=== PATIENT | female | born 1935 | race Caucasian/White ===

== ENCOUNTER 2016-12-04 13:36 | Inpatient (IN) | payer MEDICARE ==
[~2016-12-04] VITALS: Ht 134.6 cm; Wt 50.8 kg
[2016-12-04] MEDS ORDERED: PLEASE ENTER ALLERGIES MC SCH ×2 (14:00)
[2016-12-04] MEDS ORDERED: MAALOX/HYOSCYAMINE/LIDOCAINE 45 ML BTL PO ONE (14:00)
[2016-12-04] MEDS ORDERED: PLEASE ENTER HEIGHT AND WEIGHT MC SCH (14:00)
[2016-12-04] MEDS ORDERED: MONT4GRA PO (14:05)
[2016-12-04] MEDS ORDERED: ESCI10TA10 PO (14:06)
[2016-12-04] MEDS ORDERED: CETI10CA PO (14:06)
[2016-12-04] MEDS ORDERED: INSU100C SQ-INSULIN (14:07)
[2016-12-04 14:09] LABS: PH, VENOUS 7.237 pH (7.320-7.420)
[2016-12-04] MEDS ORDERED: MAALOX/HYOSCYAMINE/LIDOCAINE 45 ML BTL ONE (14:12)
[2016-12-04 14:16] LABS: HEMATOCRIT 37.6 % (34.6-47.8); HEMOGLOBIN 12.4 g/dL (11.7-16.4); WHITE BLOOD COUNT 10.5 x10^3/uL (3.4-10)
[2016-12-04 14:22] LABS: BLOOD UREA NITROGEN 29 mg/dL (7-18)
[2016-12-04 14:26] LABS: IS PT STATUS REG ER OR PRE ER? YES
[2016-12-04] MEDS ORDERED: SODIUM CHLORIDE 0.9% 1,000ML IVBOLUS ONE ×2 (14:30→15:00)
[2016-12-04] MEDS ORDERED: SODIUM CHLORIDE FLUSH 10ML SYR IVF ONE (14:30)
[2016-12-04] MEDS ORDERED: NITROGLYCERIN SINGLE TAB 0.4 MG SL ONE (14:51)
[2016-12-04] MEDS ORDERED: INSULIN REGULAR 100 UNITS/ML, 3ML VIAL ONE (14:52)
[2016-12-04] MEDS ORDERED: ASPIRIN 81 MG TABLET CHEW ONE (14:52)
[2016-12-04] MEDS ORDERED: INSULIN REGULAR 100 UNITS/ML, 3ML VIAL SQ-INSULIN ONE (15:00)
[2016-12-04] MEDS ORDERED: NITROGLYCERIN SINGLE TAB 0.4 MG SL PRN (15:00)
[2016-12-04] MEDS ORDERED: ASPIRIN 81 MG TABLET CHEW PO ONE (15:00)
[2016-12-04 16:27] LABS: BLOOD UREA NITROGEN 29 mg/dL (7-18)
[2016-12-04] MEDS ORDERED: DOCUSATE 100 MG CAPSULE PO PRN (16:30)
[2016-12-04] MEDS ORDERED: POLYETHYLENE GLYCOL 17 GM PACKET PO PRN (16:30)
[2016-12-04] MEDS ORDERED: ONDANSETRON 2MG/ML, 2ML IVPush PRN (16:30)
[2016-12-04] MEDS ORDERED: BISACODYL 10 MG SUPP PR PRN (16:30)
[2016-12-04] MEDS ORDERED: ENOXAPARIN 40 MG/0.4 ML ONE (16:44)
[2016-12-04] MEDS: ENOXAPARIN 40 MG/0.4 ML SQ SCH (16:47)
[2016-12-04] MEDS: SODIUM CHLORIDE 0.9% 1,000 ML IV SCH ×2 (16:47→18:48)
[2016-12-04 17:58] VITALS: BP 158/52
[2016-12-04] MEDS: REGULAR INSULIN 62.5 UNITS in SODIUM CHLORIDE 0.9% 249.375 ML IV PRN (18:47)
[2016-12-04 20:05] LABS: BLOOD UREA NITROGEN 25 mg/dL (7-18)
[2016-12-04] MEDS: METOPROLOL TARTRATE 25 MG TABLET PO SCH (20:23)
[2016-12-04 20:25] LABS: IS PT STATUS REG ER OR PRE ER? NO
[2016-12-04] MEDS ORDERED: FAMOTIDINE 20 MG/2 ML IVPush SCH (21:00)
[2016-12-04] MEDS ORDERED: D5%-0.45% NACL 1,000 ML IV SCH (22:00)
[2016-12-04] MEDS: D5%-0.45% NACL 1,000 ML IV SCH (22:00)
[2016-12-05 00:38] LABS: BLOOD UREA NITROGEN 20 mg/dL (7-18)
[2016-12-05 04:50] LABS: IS PT STATUS REG ER OR PRE ER? NO
[2016-12-05 04:57] LABS: ASPARTATE AMINO TRANSFERASE 18 U/L (15-37); BLOOD UREA NITROGEN 19 mg/dL (7-18)
[2016-12-05 05:14] LABS: HEMATOCRIT 31.5 % (34.6-47.8); HEMOGLOBIN 10.4 g/dL (11.7-16.4); WHITE BLOOD COUNT 16.1 x10^3/uL (3.4-10)
[2016-12-05] MEDS: ASPIRIN 81 MG TABLET EC PO SCH (05:32)
[2016-12-05] MEDS: METOPROLOL TARTRATE 25 MG TABLET PO SCH ×2 (05:32→18:28)
[2016-12-05] MEDS: D5%-0.45% NACL 1,000 ML IV SCH ×2 (05:32→13:49)
[2016-12-05 08:09] LABS: BLOOD UREA NITROGEN 16 mg/dL (7-18)
[2016-12-05] MEDS: FAMOTIDINE 20 MG/2 ML IVPush SCH (09:44)
[2016-12-05 12:27] LABS: BLOOD UREA NITROGEN 12 mg/dL (7-18)
[2016-12-05 12:38] LABS: IS PT STATUS REG ER OR PRE ER? NO
[2016-12-05] MEDS: ENOXAPARIN 40 MG/0.4 ML SQ SCH (16:33)
[2016-12-05 16:36] LABS: BLOOD UREA NITROGEN 10 mg/dL (7-18)
[2016-12-05] MEDS: REGULAR INSULIN 62.5 UNITS in SODIUM CHLORIDE 0.9% 249.375 ML IV PRN (16:36)
[2016-12-05] MEDS: INSULIN DETEMIR 100 UNITS/ML, PEN SQ-INSULIN SCH (19:46)
[2016-12-05] MEDS: INSULIN ASPART 100 UNITS/ML, PEN SQ-INSULIN SCH (22:00)
[2016-12-05] MEDS: SODIUM CHLORIDE FLUSH 10ML SYR IVF SCH (22:24)
[2016-12-05] MEDS ORDERED: DEXTROSE 4 GM TAB.CHEW PO PRN (22:30)
[2016-12-05] MEDS ORDERED: GLUCAGON 1 MG IM PRN (22:30)
[2016-12-05] MEDS ORDERED: DEXTROSE 50%, 50ML SYRINGE IVPush PRN (22:30)
[2016-12-05] MEDS ORDERED: hydrALAzine 20 MG/ML, 1ML ONE (22:37)
[2016-12-05] MEDS: hydrALAzine 20 MG/ML, 1ML IV PRN (22:41)
[2016-12-05] MEDS ORDERED: ALBUTEROL SULFATE 2.5 MG/3 ML ONE (22:48)
[2016-12-05] MEDS ORDERED: NITROGLYCERIN SINGLE TAB 0.4 MG SL ONE (22:59)
[2016-12-05] MEDS: NITROGLYCERIN SINGLE TAB 0.4 MG SL PRN ×3 (23:09→23:47)
[2016-12-05 23:58] LABS: IS PT STATUS REG ER OR PRE ER? NO
[2016-12-06] MEDS: INSULIN ASPART 100 UNITS/ML, PEN SQ-INSULIN SCH ×4 (02:00→12:47)
[2016-12-06 04:45] LABS: BLOOD UREA NITROGEN 8 mg/dL (7-18)
[2016-12-06] MEDS: ASPIRIN 81 MG TABLET EC PO SCH (05:35)
[2016-12-06] MEDS: METOPROLOL TARTRATE 25 MG TABLET PO SCH ×2 (05:36→16:36)
[2016-12-06] MEDS: INSULIN DETEMIR 100 UNITS/ML, PEN SQ-INSULIN SCH (06:07)
[2016-12-06] MEDS ORDERED: D5%-0.45% NACL 1,000 ML IV SCH (06:30)
[2016-12-06] MEDS ORDERED: REGADENOSON 0.4 MG/5 ML SYRINGE ONE (08:08)
[2016-12-06] MEDS: FAMOTIDINE 20 MG/2 ML IVPush SCH (08:20)
[2016-12-06] MEDS: SODIUM CHLORIDE FLUSH 10ML SYR IVF SCH (08:20)
[2016-12-06 11:47] LABS: HEMATOCRIT 32.4 % (34.6-47.8); HEMOGLOBIN 10.8 g/dL (11.7-16.4); WHITE BLOOD COUNT 10.3 x10^3/uL (3.4-10)
[2016-12-06] MEDS ORDERED: INSULIN DETEMIR 100 UNITS/ML, PEN SQ-INSULIN SCH (13:00)
[2016-12-06] MEDS: hydrALAzine 20 MG/ML, 1ML IV PRN (13:50)
[2016-12-06] MEDS ORDERED: ASPI-496 PO (15:14)
[2016-12-06] MEDS ORDERED: METO25TA4 PO (15:14)
[2016-12-06] MEDS ORDERED: INSU100I28 SC (15:54)
[2016-12-06] MEDS ORDERED: INSU100I18 SQ-INSULIN (15:54)
[2016-12-06] MEDS: ENOXAPARIN 40 MG/0.4 ML SQ SCH (16:35)
== END 2016-12-06 17:54 | disposition home or self-care (01) | DRG 682 ==
LOC: ED 15:51 → EDIP 15:52 → ED 16:42 → CCU 17:26
PROVIDERS: ADMIT Internal Medicine; ATTEND Internal Medicine
DX: N17.9 Acute kidney failure, unspecified (principal); E13.10 Other specified diabetes mellitus with ketoacidosis without coma; J45.909 Unspecified asthma, uncomplicated; K44.9 Diaphragmatic hernia without obstruction or gangrene; Z96.41 Presence of insulin pump (external) (internal); E86.0 Dehydration; D72.829 Elevated white blood cell count, unspecified; G31.84 Mild cognitive impairment of uncertain or unknown etiology; I25.10 Atherosclerotic heart disease of native coronary artery without angina pectoris; I25.2 Old myocardial infarction; Z79.4 Long term (current) use of insulin; Z79.82 Long term (current) use of aspirin; Z85.3 Personal history of malignant neoplasm of breast; Z88.2 Allergy status to sulfonamides; Z88.5 Allergy status to narcotic agent; Z79.899 Other long term (current) drug therapy
CPT/HCPCS: 36415; 71010; 78452; 80048; 80053; 82010; 82040; 82803; 82962; 83036; 83735; 84100; 84484; 85025; 87081; 93005; 93017; 94640; 96360; 96361; 96372; J1650; J1815; J2785; 92523-GN; A9502; C9898; J0360; J7030; J7050; S0028